=== PATIENT | female | born 1995 | race Caucasian/White ===

== ENCOUNTER 2019-01-19 18:06 | Emergency (ER) | payer MEDICAID ==
--- NOTE | 2019-01-19 18:51 | EDM.PDOC ---
ED HPI GENERAL MEDICAL PROBLEM - General Chief Complaint: Gastrointestinal Problem Stated Complaint: MEDICAL Time Seen by Provider: 01/19/19 18:35 Source of Information: Reports: Patient History Limitations: Reports: No Limitations - History of Present Illness INITIAL COMMENTS - FREE TEXT/NARRATIVE: 23 yo female here with a week of mild nausea without vomiting, mild diarrhea, and onset this morning of LLQ abdominal pain. Has felt more fatigued than usual as well. No fever. Is due next week for her menses. No bloody diarrhea. Has had only one loose stool so far today. Onset: Gradual Onset Date: 01/13/19 Duration: Week(s): (1), Getting Worse Location: Reports: Abdomen Quality: Reports: Dull Severity: Mild Improves with: Reports: None Worsens with: Reports: Other (time) Context: Reports: Other (See HPI) Associated Symptoms: Reports: Loss of Appetite, Nausea/Vomiting (no vomiting). Denies: Cough, Fever/Chills, Shortness of Breath Treatments FIELD CROP GROWER: Reports: Other (see below) (none) Abdominal Pain Score (Numeric/FACES): 8 - Related Data Allergies Allergy/AdvReac Type Severity Reaction Status Date / Time No Known Allergies Allergy Verified 01/19/19 18:26 Home Meds: Home Meds Acetaminophen/HYDROcodone [[place] 325-5 MG] 1 - 2 tab PO Q6H PRN #10 tab [Rx] Norgestimate-Ethinyl Estradiol [Tri-Linyah Tablet] 1 each PO DAILY 01/19/19 [ History] Ondansetron [Zofran ODT] 4 mg PO Q6H PRN #7 tab.dis 01/19/19 [Rx] Past Medical History Musculoskeletal History: Reports: Fracture Other Musculoskeletal History: fx l ankle Psychiatric History: Reports: Anxiety, Depression Dermatologic History: Reports: Psoriasis - Past Surgical History HEENT Surgical History: Reports: Tonsillectomy, Other (See Below) Other HEENT Surgeries/Procedures: 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 Denies: Fever, Chills HEENT: Reports: No Symptoms Respiratory: Reports: Shortness of Breath (mild) Cardiovascular: Reports: No Symptoms Endocrine: Reports: Fatigue GI/Abdominal: Reports: Abdominal Pain (LLQ), Diarrhea, Decreased Appetite, Nausea. Denies: Black Stool, Bloody Stool, Constipation, Distension, Hematemesis, Hematochezia, Melena, Vomiting : Reports: No Symptoms Musculoskeletal: Reports: No Symptoms Skin: Reports: No Symptoms Neurological: Reports: No Symptoms Psychiatric: Reports: No Symptoms ED EXAM, GI/ABD - Physical Exam Exam: See Below Exam Limited By: No Limitations General Appearance: Alert, WD/WN, No Apparent Distress, Obese Eyes: Bilateral: Normal Appearance Ears: Normal External Exam, Normal Canal, Hearing Grossly Normal, Normal TMs Nose: Normal Inspection, No Blood Throat/Mouth: Normal Inspection, Normal Lips, Normal Oropharynx, Normal Voice, No Airway Compromise Head: Atraumatic, Normocephalic Neck: Normal Inspection Respiratory/Chest: No Respiratory Distress, Lungs Clear, Normal Breath Sounds, No Accessory Muscle Use Cardiovascular: Regular Rate, Rhythm, No Edema GI/Abdominal Exam: Normal Bowel Sounds, Soft, No Distention, Tender (left sided. ). No: Non-Tender, Distended, Abnormal Bowel Sounds, Hernia Back Exam: Normal Inspection. No: CVA Tenderness (R), CVA Tenderness (L) Extremities: Normal Inspection, Normal Range of Motion, Non-Tender, No Pedal Edema Neurological: Alert, Oriented, CN II-XII Intact, Normal Cognition, No Motor/ Sensory Deficits Psychiatric: Normal Affect, Normal Mood Skin Exam: Warm, Dry, Intact, Normal Color, No Rash Course - Vital Signs Last Recorded V/S: Last Vital Signs Temp 36.7 C 01/19/19 18:33 Pulse 74 01/19/19 18:33 Resp 22 H 01/19/19 18:33 BP 156/78 H 01/19/19 18:33 Pulse Ox 98 01/19/19 18:33 - Orders/Labs/Meds Labs: Laboratory Tests 01/19/19 01/19/19 01/19/19 Range/Units 19:05 19:05 19:08 WBC 8.1 (4.5-11.0) K/uL RBC 4.58 (3.30-5.50) M/uL Hgb 13.2 (12.0-15.0) g/dL Hct 41.0 (36.0-48.0) % MCV 90 (80-98) fL MCH 29 (27-31) pg MCHC 32 (32-36) % Plt Count 225 (150-400) K/uL C-Reactive Protein 0.66 H (0.0-0.3) mg/dL Urine HCG, Qual Negative Departure - Departure Time of Disposition: 19:29 Disposition: Home, Self-Care 01 Condition: Fair Clinical Impression: LLQ abdominal pain, Nausea - Discharge Information *PRESCRIPTION DRUG MONITORING PROGRAM REVIEWED*: No *COPY OF PRESCRIPTION DRUG MONITORING REPORT IN PATIENT HEATHER: No Prescriptions: Acetaminophen/HYDROcodone [[place] 325-5 MG] 1 - 2 tab PO Q6H PRN #10 tab PRN Reason: Pain Ondansetron [Zofran ODT] 4 mg PO Q6H PRN #7 tab.dis PRN Reason: Nausea Referrals: PCP,None [Primary Care Provider] - Forms: ED Department Discharge Additional Instructions: Use acetaminophen OR [place] for pain relief. May also take ibuprofen for additional pain relief. Use Zofran for nausea control. Recheck in the clinic if not improving.
== END 2019-01-19 19:36 | disposition home or self-care (01) ==
LOC: JP.ED 18:06
DX: R10.32 Left lower quadrant pain (principal); R11.0 Nausea
CPT/HCPCS: 36415; 81025; 85027; 86140; 99284